=== PATIENT | male | born 1940 | race Caucasian/White ===

== ENCOUNTER 2016-10-30 19:27 | Emergency (ER) | payer OTHER, MEDICARE ==
[~2016-10-30 19:27] MED LIST: CARDU4 PO; CENTRUM TAB1 TAB PO; GLUCCHONDR PO; GLUCPH PO; KEPPRA1000 MG PO; NAP500 PO; PRIN5 PO; PRISTIQ50 MG PO; WELLXL300 PO; ZOCOR20 PO
== END 2016-10-30 22:12 | disposition home or self-care (01) ==
LOC: ER 19:27
DX: S70.12XA Contusion of left thigh, initial encounter (principal); S00.81XA Abrasion of other part of head, initial encounter; R55 Syncope and collapse; F32.9 Major depressive disorder, single episode, unspecified; E11.9 Type 2 diabetes mellitus without complications; N40.0 Benign prostatic hyperplasia without lower urinary tract symptoms; Z88.8 Allergy status to other drugs, medicaments and biological substances; Z79.84 Long term (current) use of oral hypoglycemic drugs; Z79.899 Other long term (current) drug therapy; Z23 Encounter for immunization; V49.60XA Unspecified car occupant injured in collision with unspecified motor vehicles in traffic accident, initial encounter
CPT/HCPCS: 70450; 72125; 73090-LT; 73552-LT; 90471; 90714; 99284; A9270-GY